=== PATIENT | female | born 1990 | race African-American/Black ===

== ENCOUNTER 2019-05-15 16:23 | Emergency (ER) | payer MEDICAID ==
[~2019-05-15] VITALS: Ht 167.6 cm; Wt 73.0 kg
[2019-05-15] MEDS ORDERED: HYDROCODONE/ACETAMINOPHEN 5/325MG TABLET PO ONE (16:45)
[2019-05-15] MEDS ORDERED: KETOROLAC 60MG/2ML VIAL IM ONE (16:45)
[2019-05-15 17:46] VITALS: BP 109/71
== END 2019-05-15 17:50 | disposition home or self-care (01) ==
LOC: ER 16:50
DX: S93.401A Sprain of unspecified ligament of right ankle, initial encounter (principal); W18.42XA Slipping, tripping and stumbling without falling due to stepping into hole or opening, initial encounter; R03.0 Elevated blood-pressure reading, without diagnosis of hypertension; Y93.01 Activity, walking, marching and hiking; Y92.488 Other paved roadways as the place of occurrence of the external cause
CPT/HCPCS: 29125; 73610; 96372; 99283; J1885

== ENCOUNTER 2020-03-15 15:10 | Emergency (ER) | payer OTHER ==
[~2020-03-15] VITALS: Ht 160 cm; Wt 65.0 kg
[2020-03-15 16:05] LABS: CLARITY URINE CLEAR (CLEAR); COLOR URINE YELLOW (YELLOW); KETONES URINE NEGATIVE (NEGATIVE); LEUKOCYTE ESTERASE URINE 1+ (NEGATIVE); NITRITE URINE NEGATIVE (NEGATIVE); OCCULT BLOOD URINE TRACE (NEGATIVE); PH URINE 6.5 (4.5-8.0); PROTEIN URINE NEGATIVE (NEGATIVE); SPECIFIC GRAVITY URINE 1.004 (1.005-1.030); UROBILINOGEN URINE 0.2 E.U./dL (0.2-1.0)
[2020-03-15 16:47] VITALS: BP 102/75
== END 2020-03-15 16:48 | disposition home or self-care (01) ==
LOC: ER 15:10
DX: N39.0 Urinary tract infection, site not specified (principal)
CPT/HCPCS: 81003; 81025; 99283

== ENCOUNTER 2021-04-17 19:07 | Emergency (ER) | payer OTHER ==
[~2021-04-17] VITALS: Ht 167.6 cm; Wt 74.6 kg
[2021-04-17 19:31] VITALS: BP 113/68
[2021-04-17 20:14] LABS: CLARITY URINE CLEAR (CLEAR); COLOR URINE YELLOW (YELLOW); KETONES URINE NEGATIVE (NEGATIVE); LEUKOCYTE ESTERASE URINE 2+ (NEGATIVE); NITRITE URINE NEGATIVE (NEGATIVE); OCCULT BLOOD URINE 1+ (NEGATIVE); PROTEIN URINE NEGATIVE (NEGATIVE); SPECIFIC GRAVITY URINE 1.006 (1.005-1.030); UROBILINOGEN URINE 0.2 E.U./dL (0.2-1.0)
[2021-04-17] MEDS ORDERED: CEPHALEXIN 250MG CAPSULE PO ONE (21:00)
[2021-04-17] MEDS ORDERED: CEPH500C2 MT (21:02)
== END 2021-04-17 21:28 | disposition home or self-care (01) ==
LOC: ER 19:07
DX: N39.0 Urinary tract infection, site not specified (principal)
CPT/HCPCS: 81003; 81025; 99283

== ENCOUNTER 2021-06-17 15:35 | Emergency (ER) | payer OTHER ==
[~2021-06-17] VITALS: Ht 167.6 cm; Wt 76.0 kg
[~2021-06-17 15:35] MED LIST: CEPH500C2 MT
[2021-06-17] MEDS ORDERED: IBUPROFEN 600MG TABLET PO ONE (17:00)
[2021-06-17 17:28] VITALS: BP 110/61
[2021-06-17 17:55] LABS: CLARITY URINE CLEAR (CLEAR); COLOR URINE YELLOW (YELLOW); KETONES URINE NEGATIVE (NEGATIVE); LEUKOCYTE ESTERASE URINE TRACE (NEGATIVE); NITRITE URINE NEGATIVE (NEGATIVE); OCCULT BLOOD URINE NEGATIVE (NEGATIVE); PROTEIN URINE NEGATIVE (NEGATIVE); SPECIFIC GRAVITY URINE 1.014 (1.005-1.030); UROBILINOGEN URINE 0.2 E.U./dL (0.2-1.0)
[2021-06-17] MEDS ORDERED: NAP5EC MT (18:36)
[2021-06-17] MEDS ORDERED: ACET-2708 MT (18:36)
== END 2021-06-17 18:48 | disposition home or self-care (01) ==
LOC: ER 15:35
DX: M54.5 Low back pain (principal); Z87.440 Personal history of urinary (tract) infections
CPT/HCPCS: 81003; 81025; 99283

== ENCOUNTER 2022-02-06 08:59 | Emergency (ER) | payer OTHER ==
[~2022-02-06] VITALS: Ht 167.6 cm; Wt 70.0 kg
[~2022-02-06 08:59] MED LIST changes: +ACET-2708 MT; +NAP5EC MT
[2022-02-06] MEDS ORDERED: ONDANSETRON HCL 4MG/2ML INJ IV ONE (09:30)
[2022-02-06] MEDS ORDERED: SODIUM CHLORIDE 0.9% 1,000 ML IV ONE (09:30)
[2022-02-06 10:44] LABS: HEMATOCRIT. 32.5 % (36.0-48.0); HEMOGLOBIN. 10.8 g/dL (12.0-16.0); MEAN CORPUSCULAR HEMOGLOBIN 28.2 pg (28.0-32.0); MEAN CORPUSCULAR VOLUME 85.3 fL (81.0-99.0); MEAN PLATELET VOLUME 10.9 fl (7.4-10.4); PLATELET 158 x1000/uL (130-400); RED BLOOD CELL COUNT 3.82 mill/uL (4.2-5.4); RED CELL DISTRIBUTION WIDTH 16.1 % (11.6-14.6)
[2022-02-06 11:07] LABS: CHLORIDE 111 mEq/L (98-107)
[2022-02-06 11:08] VITALS: BP 105/48
[2022-02-06 11:11] LABS: HCG SCREEN NEGATIVE
[2022-02-06 12:12] LABS: PLATELET ESTIMATE NORMAL
[2022-02-06] MEDS ORDERED: IOHEXOL-300 100 ML BOTTLE ONE (14:40)
== END 2022-02-06 14:55 | disposition home or self-care (01) ==
LOC: ER 09:29
DX: R10.9 Unspecified abdominal pain (principal); R11.2 Nausea with vomiting, unspecified
CPT/HCPCS: 36415; 74177; 76705; 80053; 82248; 83690; 84703; 85025; 96374; 99285; J2405; J7030; Q9967

== ENCOUNTER 2022-06-17 08:08 | Emergency (ER) | payer OTHER ==
[~2022-06-17] VITALS: Ht 160 cm; Wt 62.5 kg
[2022-06-17 09:26] LABS: CLARITY URINE CLOUDY (CLEAR); COLOR URINE YELLOW (YELLOW); KETONES URINE NEGATIVE (NEGATIVE); LEUKOCYTE ESTERASE URINE 3+ (NEGATIVE); NITRITE URINE NEGATIVE (NEGATIVE); OCCULT BLOOD URINE 3+ (NEGATIVE); PROTEIN URINE TRACE (NEGATIVE); SPECIFIC GRAVITY URINE 1.015 (1.005-1.030)
[2022-06-17] MEDS ORDERED: CEPH500C2 MT (09:44)
[2022-06-17 10:14] VITALS: BP 102/72
== END 2022-06-17 10:15 | disposition home or self-care (01) ==
LOC: ER 08:08
DX: R05.9 Cough, unspecified (principal)
CPT/HCPCS: 81003; 81025; 87077; 87186; 99283

== ENCOUNTER 2022-09-09 13:44 | Emergency (ER) | payer MEDICAID, OTHER ==
[~2022-09-09] VITALS: Ht 167.6 cm; Wt 65.0 kg
[2022-09-09] MEDS ORDERED: AZIT250T12 MT (18:52)
[2022-09-09] MEDS ORDERED: ALBU18HF2 IH (18:52)
[2022-09-09] MEDS ORDERED: D-ME473S50 PO (18:52)
[2022-09-09 19:51] VITALS: BP 112/78
== END 2022-09-09 19:50 | disposition home or self-care (01) ==
LOC: ER 13:44
DX: J20.9 Acute bronchitis, unspecified (principal); Z20.822 Contact with and (suspected) exposure to COVID-19
CPT/HCPCS: 71045; 81025; 87426; 99284; C9803

== ENCOUNTER 2022-10-09 17:05 | Emergency (ER) | payer MEDICAID, OTHER ==
[~2022-10-09] VITALS: Ht 167.6 cm; Wt 64.5 kg
[~2022-10-09 17:05] MED LIST changes: +ALBU18HF2 IH; +AZIT250T12 MT; +D-ME473S50 PO
[2022-10-09] MEDS ORDERED: HYDR-4001 MT (21:52)
[2022-10-09] MEDS ORDERED: HYDROCODONE/ACETAMINOPHEN 5/325MG TABLET PO ONE (22:00)
[2022-10-09 22:04] VITALS: BP 103/56
== END 2022-10-09 22:09 | disposition home or self-care (01) ==
LOC: ER 17:05
DX: R09.1 Pleurisy (principal); R07.89 Other chest pain; D64.9 Anemia, unspecified; Z79.899 Other long term (current) drug therapy
CPT/HCPCS: 71045; 81025; 99283

== ENCOUNTER 2022-10-24 12:12 | Emergency (ER) | payer OTHER ==
[~2022-10-24] VITALS: Ht 167.6 cm; Wt 64.0 kg
[~2022-10-24 12:12] MED LIST changes: +HYDR-4001 MT
[2022-10-24 12:15] VITALS: BP 104/57
[2022-10-24 16:51] LABS: CLARITY URINE CLOUDY (CLEAR); COLOR URINE YELLOW (YELLOW); KETONES URINE NEGATIVE (NEGATIVE); LEUKOCYTE ESTERASE URINE 3+ (NEGATIVE); NITRITE URINE NEGATIVE (NEGATIVE); OCCULT BLOOD URINE 2+ (NEGATIVE); PH URINE 6.5 (4.5-8.0); PROTEIN URINE NEGATIVE (NEGATIVE); UROBILINOGEN URINE 0.2 E.U./dL (0.2-1.0)
== END 2022-10-24 16:40 | disposition home or self-care (01) ==
LOC: ER 12:12
DX: N39.0 Urinary tract infection, site not specified (principal); B96.20 Unspecified Escherichia coli [E. coli] as the cause of diseases classified elsewhere
CPT/HCPCS: 81003; 81025; 87077; 87186; 99283

== ENCOUNTER 2023-03-30 16:59 | Emergency (ER) | payer OTHER ==
[~2023-03-30] VITALS: Ht 167.6 cm; Wt 64.0 kg
[2023-03-30 17:46] VITALS: BP 100/65
[2023-03-30 19:16] LABS: CLARITY URINE CLOUDY (CLEAR); COLOR URINE YELLOW (YELLOW); KETONES URINE NEGATIVE (NEGATIVE); LEUKOCYTE ESTERASE URINE 3+ (NEGATIVE); NITRITE URINE NEGATIVE (NEGATIVE); OCCULT BLOOD URINE 3+ (NEGATIVE); PH URINE 6.5 (4.5-8.0); PROTEIN URINE 1+ (NEGATIVE); SPECIFIC GRAVITY URINE 1.019 (1.005-1.030)
[2023-03-30] MEDS ORDERED: IBUP-2028 MT (20:04)
[2023-03-30] MEDS ORDERED: NITR-87 MT (20:04)
== END 2023-03-30 21:27 | disposition home or self-care (01) ==
LOC: ER 16:59
DX: N39.0 Urinary tract infection, site not specified (principal); D64.9 Anemia, unspecified; Z79.899 Other long term (current) drug therapy
CPT/HCPCS: 81003; 81025; 99283

== ENCOUNTER 2023-11-12 20:00 | Emergency (ER) | payer OTHER ==
[~2023-11-12] VITALS: Ht 170.2 cm; Wt 69.1 kg
[~2023-11-12 20:00] MED LIST changes: +IBUP-2028 MT; +NITR-87 MT
[2023-11-12 20:46] VITALS: BP 103/68; PULSE 82; RESP 14; TEMP 98.6; O2SAT 100
[2023-11-12 21:19] LABS: CLARITY URINE CLOUDY (CLEAR); COLOR URINE YELLOW (YELLOW); GLUCOSE URINE NEGATIVE (NEGATIVE); KETONES URINE NEGATIVE (NEGATIVE); LEUKOCYTE ESTERASE URINE 3+ (NEGATIVE); NITRITE URINE POSITIVE (NEGATIVE); OCCULT BLOOD URINE 1+ (NEGATIVE); PROTEIN URINE TRACE (NEGATIVE); SPECIFIC GRAVITY URINE 1.021 (1.005-1.030)
[2023-11-12] MEDS ORDERED: NITR100C MT (21:38)
[2023-11-12 21:40] LABS: BACTERIA URINE 2+; SQUAMOUS EPITHELIAL CELL URINE 1+ /lpf (RARE/1+); WBC URINE 15-25 /hpf (0-2)
== END 2023-11-12 22:06 | disposition home or self-care (01) ==
LOC: ER 20:00
DX: N39.0 Urinary tract infection, site not specified (principal); Z79.899 Other long term (current) drug therapy
CPT/HCPCS: 81003; 81025; 99283